=== PATIENT | female | born 1960 | race Asian ===

== ENCOUNTER 2018-10-10 08:23 | Day surgery (SDC) | END 2018-10-10 14:31 | disposition home or self-care (01) ==

== ENCOUNTER 2019-05-06 23:39 | Emergency (ER) | payer OTHER ==
[~2019-05-06] VITALS: Ht 160 cm; Wt 67.3 kg
[~2019-05-06 23:39] MED LIST: AMLODIPINE; ATORVASTATIN; LOSARTAN; METFORMIN; TRAZODONE
[2019-05-06 23:54] VITALS: Ht 160 cm; Wt 67.3 kg
[2019-05-07] MEDS ORDERED: PROCHLORPERAZINE 10 MG INJ IV STA (00:11)
[2019-05-07] MEDS ORDERED: HYDROmorphONE 1 MG/ML SYG IV STA (00:11)
[2019-05-07] MEDS ORDERED: DIPHENHYDRAMINE 50 MG INJ IV STA (00:11)
--- NOTE | 2019-05-07 01:27 | ERD ---
ER Documentation Chief Complaint Chief Complaint L side ANN & dizzines last night,throbbing chest pain started 3 hours ago HPI This is a 58-year-old female who complains of a left-sided headache. She said last night right before she went to bed around 11 PM she developed some blurry vision in her left eye and then it resolved and then she developed a left-sided throbbing headache behind her left eye and left temporal region. She says the pain is throbbing and there is no photophobia or phonophobia but there is some positional change worsening. She also is complaining of some vertigo. She has no focal neurological complaints of numbness or weakness. No speech changes no fever or neck pain. The vertigo occurs when she moves her head only. ROS All systems reviewed and are negative except as per history of present illness. Medications Home Meds Active Scripts Hydrocodone/Acetaminophen ([place] 10-325 Tablet) 1 Each Tablet, 1 TAB PO Q6H PRN for PAIN, #8 TAB Prov:BROCK GAUILAR DO 05/07/19 Meclizine Hcl* (Antivert*) 12.5 Mg Tab, 25 MG PO Q6H PRN for DIZZINESS, #20 TAB Prov:BROCK AGUILAR DO 05/07/19 Reported Medications [Trazodone] No Conflict Check 10/10/18 [Metformin] No Conflict Check 10/10/18 [Losartan] No Conflict Check 10/10/18 [Atorvastatin] No Conflict Check 10/10/18 [Amlodipine] No Conflict Check 10/10/18 Allergies Allergies: Coded Allergies: No Known Allergy (Unverified , 10/10/18) PMhx/Soc History of Surgery: Yes (hemorrhoidectomy,) Anesthesia Reaction: No Hx Neurological Disorder: No Hx Respiratory Disorders: No Hx Cardiac Disorders: Yes (HTN,high cholesterol) Hx Psychiatric Problems: Yes (depression,anxiety) Hx Miscellaneous Medical Probl: No Hx Alcohol Use: No Hx Substance Use: No Hx Tobacco Use: No Smoking Status: Never smoker FmHx Family History: No coronary disease Physical Exam Vitals Vital Signs Date Temp Pulse Resp B/P (MAP) Pulse Ox O2 O2 Flow FiO2 Time Delivery Rate 05/07/19 68 16 108/77 95 Room Air 02:30 (87) 05/07/19 71 19 110/73 96 Room Air 02:00 (85) 05/07/19 86 19 126/85 96 Room Air 01:30 (99) 05/07/19 81 18 120/87 92 Room Air 01:00 (98) 05/07/19 91 14 141/83 98 Room Air 00:30 (102) 05/07/19 96 20 138/92 99 Room Air 00:00 (107) 05/06/19 98.5 104 18 151/98 99 23:54 (115) Physical Exam Const: Well-developed, well-nourished Head: Atraumatic, normocephalic Eyes: Normal Conjunctiva, PERRLA, EOMI, normal sclera, no nystagmus ENT: Normal External Ears, Nose and Mouth, moist mucus membranes. Neck: Full range of motion. No meningismus, no lymphadenopathy. Resp: Clear to auscultation bilaterally, no wheezing, rhonchi, rales Cardio: Regular rate and rhythm, no murmurs, S1 S2 present Abd: Soft, non tender x 4, non distended. Normal bowel sounds, no guarding or rebound, no pulsitile abdominal masses or bruits Skin: No petechiae or rashes, no ecchymosis , no maculopapular rash Back: No midline or flank tenderness Ext: No cyanosis, or edema, FROM x 4, normal inspection, neurovascularly intact x 4 Neur: Awake and alert, STR 5/5 x 4, sensation intact x 4, no focal findings, cerebellum intact, movement of the head will induce vertigo Psych: Normal Mood and Affect Result Diagram: 05/07/19 0021 05/07/19 0021 Results 24 hrs Laboratory Tests Test 05/07/19 00:21 White Blood Count 6.7 10^3/ul Red Blood Count 3.99 10^6/ul Hemoglobin 11.7 g/dl Hematocrit 35.8 % Mean Corpuscular Volume 89.7 fl Mean Corpuscular Hemoglobin 29.3 pg Mean Corpuscular Hemoglobin Concent 32.7 g/dl Red Cell Distribution Width 12.5 % Platelet Count 224 10^3/UL Mean Platelet Volume 10.0 fl Immature Granulocytes % 0.200 % Neutrophils % 54.8 % Lymphocytes % 31.7 % Monocytes % 9.2 % Eosinophils % 3.8 % Basophils % 0.3 % Nucleated Red Blood Cells % 0.0 /100WBC Immature Granulocytes # 0.010 10^3/ul Neutrophils # 3.7 10^3/ul Lymphocytes # 2.1 10^3/ul Monocytes # 0.6 10^3/ul Eosinophils # 0.3 10^3/ul Basophils # 0.0 10^3/ul Nucleated Red Blood Cells # 0.0 10^3/ul Sodium Level 141 mmol/L Potassium Level 3.5 mmol/L Chloride Level 104 mmol/L Carbon Dioxide Level 27 mmol/L Anion Gap 10 Blood Urea Nitrogen 12 mg/dl Creatinine 1.06 mg/dl Est Glomerular Filtrat Rate mL/min 53 mL/min Glucose Level 187 mg/dl Calcium Level 9.6 mg/dl Troponin I < 0.012 ng/ml Current Medications Medications Dose Sig/Sandra Start Time Status Last (Trade) Ordered Route PRN Stop Time Admin Dose Reason Admin 10 mg ONCE STAT 05/07/19 DC 05/07/19 Prochlorperaz IV 00:11 00:44 ine 05/07/19 00:12 (Compazine Inj) 1 mg ONCE STAT 05/07/19 DC 05/07/19 Hydromorphone IV 00:11 00:44 HCl 05/07/19 00:12 (Dilaudid) 25 mg ONCE STAT 05/07/19 DC 05/07/19 Diphenhydrami IV 00:11 00:44 ne HCl 05/07/19 00:12 (Benadryl) Meclizine 25 mg ONCE ONCE 05/07/19 DC 05/07/19 HCl PO 01:30 02:48 (Antivert) 05/07/19 01:31 Meclizine 25 mg ONCE ONCE 05/07/19 HCl PO 03:30 (Antivert) 05/07/19 03:31 Procedures/[place] [id number] Radiology Main Line: [phone] DIAGNOSTIC IMAGING REPORT Patient: JOSEPHINE RIZO : 1960 Age: 58 Sex: F MR #: [id number] DOS: 05/07/19 001 Ordering MD: BROCK AGUILAR DO Location: E/R Room/Bed: PROCEDURE: CT BRAIN WITHOUT CONTRAST CLINICAL INDICATION: 58-year-old female with headaches. TECHNIQUE: The study was performed utilizing [place] VCT 64-slice CT scanner. Direct axial sections were obtained from the foramen magnum to the vertex without the use of intravenous contrast material. Sagittal and coronal reformations were obtained. One or more the following dose reduction techniques were utilized: automated exposure control, adjustment of the mA and/or kV according to patient's size and/or use of iterative reconstruction technique. DICOM images are available. The images were viewed on a PACS workstation. CTD/vol = 39.6 mGy; Total Exam DLP = 634.23 mGy.cm. COMPARISON: None. FINDINGS: There is mild prominence of the sulci and cisternal spaces consistent with diffuse volume loss. Otherwise, the ventricles have a normal shape and position. There is no evidence for mass effect or midline shift. There are no intracranial areas of abnormal attenuation. There is no evidence for acute intra or extra-axial blood. The bony calvarium is intact. The partially visualized paranasal sinuses and mastoid air cells are without significant abnormal soft tissue. IMPRESSION: Mild diffuse volume loss. .Cooper Nava MD, MD Date Time Electronically viewed and signed by .Cooper Nava MD, MD on 05/07/2019 01:16 .M/ CC: BROCK AGUILAR DO [id number] EKG: Rate/Rhythm: Normal Sinus Rhythm,NL intervals QRS, ST, QT: NORMAL MD, QRS, QT] Impression: NORMAL EKG Patient has a migraine headache with aura. After pain medication here her pain is 0 out of 10 and her vertigo is improved. Will discharge home and have her follow-up return here for any worse. Patient feels much better at this time, and vital signs are normal, symptoms have improved. I did give strict instructions to return to the ED if symptoms continue or worsen, patient will otherwise follow-up with primary care physician. Patient understood instructions and agreed to plan. Disclaimer: Inadvertent spelling and grammatical errors are likely due to EHR/dictation software use and do not reflect on the overall quality of patient care. Also, please note that the electronic time recorded on this note does not necessarily reflect the actual time of the patient encounter. Departure Diagnosis: Primary Impression: Migraine Migraine type: with aura Status migrainosus presence: without status migrainosus Intractability: not intractable Qualified Codes: G43.109 - Migraine with aura, not intractable, without status migrainosus Condition: BROCK Pike DO May 07, 2019 01:27
[2019-05-07] MEDS ORDERED: MECLIZINE 12.5 MG TAB PO ONE ×2 (01:30→03:30)
[2019-05-07] MEDS ORDERED: MECL12.574 PO (03:22)
[2019-05-07] MEDS ORDERED: HYDR-3980 PO (03:22)
[2019-05-07 03:30] VITALS: BP 110/81; PULSE 70; RESP 19
== END 2019-05-07 03:32 | disposition home or self-care (01) ==
LOC: E/R 23:39
DX: G43.109 Migraine with aura, not intractable, without status migrainosus (principal); R40.2142 Coma scale, eyes open, spontaneous, at arrival to emergency department; R40.2252 Coma scale, best verbal response, oriented, at arrival to emergency department; R40.2362 Coma scale, best motor response, obeys commands, at arrival to emergency department; I10 Essential (primary) hypertension; Z79.84 Long term (current) use of oral hypoglycemic drugs
CPT/HCPCS: 36415; 70450; 80048; 84484; 85025; 93005; 96374; 96375; J0780; J1170; J1200; Z7502; Z7610